=== PATIENT | female | born 1985 | race Two or more races ===

== ENCOUNTER 2018-11-18 21:01 | Emergency (ER) | payer OTHER ==
[~2018-11-18] VITALS: Ht 162.6 cm; Wt 77.6 kg
--- OUTSIDE RECORDS SUMMARY | 2018-11-18 21:04 | XMS REPORT ---
Author Author [facility] Address Unknown Phone Unavailable Care Team Providers Care Environmental Engineering Professor Name Role Phone Unavailable Unavailable Problems This patient has no known problems. Allergies, Adverse Reactions, Alerts This patient has no known allergies or adverse reactions. Medications This patient has no known medications. Encounters Start Date/Time End Date/Time Encounter Type Admission Type Attending Clinicians [facility] Care Department Encounter ID 2017-05-23 00:00:00 2017-05-23 00:00:00 Outpatient [facility] [id number] 2017-05-15 00:00:00 2017-05-15 00:00:00 Outpatient [facility] [id number]
[2018-11-18] MEDS ORDERED: SODIUM CHLORIDE 0.9% 1000ML 1,000 ML IV SCH (22:00)
[2018-11-18] MEDS ORDERED: DICYCLOMINE HCL 20 MG TAB PO ONE (22:00)
--- NOTE | 2018-11-18 22:38 | Diagnostic Imaging Report ---
EXAM: ABDOMEN COMPLETE - HOPD, DATE: 11/18/2018 12:00 AM INDICATION: Abdominal pain, nausea, diarrhea. COMPARISON: None FINDINGS: LINES/TUBES: None CHEST: Minimal bibasilar subsegmental atelectasis. No pleural effusion or pneumothorax. Mild perihilar, peribronchial thickening and perihilar streaky densities are nonspecific, however, may reflect viral infection versus reactive airway disease. BOWEL PATTERN: No evidence for obstruction. Gas is present within normal dilated colon. Small volume of stool within the rectum. SOFT TISSUES: No abnormal calcifications. No mass effect. LUNG BASES: Not included BONES: No acute findings. IMPRESSION: Nonobstructive bowel gas pattern. Signed by: Dr. Scott Araujo M.D. on 11/18/2018 10:35 PM
[2018-11-18] MEDS ORDERED: DICYCLOMINE HCL20 MG PO (23:26)
[2018-11-18] MEDS ORDERED: ONDANSETRON ODT8 MG PO (23:27)
[2018-11-18 23:32] VITALS: BP 118/63
== END 2018-11-18 23:30 | disposition home or self-care (01) ==
LOC: FSED 21:01
DX: K52.9 Noninfective gastroenteritis and colitis, unspecified (principal); E86.9 Volume depletion, unspecified; R11.0 Nausea; B34.9 Viral infection, unspecified; J45.30 Mild persistent asthma, uncomplicated
CPT/HCPCS: 74022; 80053; 81003; 85025; 99284